=== PATIENT | female | born 1950 | race Asian ===

== ENCOUNTER → 2016-05-14 | Outpatient (CLI) | payer MEDICARE, OTHER ==
[~2016-05-14] MED LIST: ALBU8.5H3 IH; BENZ-26 PO; CARV12 PO; CEPH500 PO; DOCU250C91 PO; ESOM40CA PO; FOLI1 PO; HYDR25 PO; IPRA0.2S54 NEB; NIFE10 PO; NIFE60TA71 PO; ONDA4 PO; PRED20 PO; SEVEC800 PO; SIMV20TA6 PO
[2016-05-14 13:56] LABS: BASOPHILS % (AUTO) 0.3 % (0.0-2.0); EOSINOPHILS % (AUTO) 4.8 % (1.0-6.0); HEMATOCRIT 32.9 % (36-46); HEMOGLOBIN 10.4 g/dL (12.0-16.0); LYMPHOCYTES # (AUTO) 1.3 K/uL (1.0-4.8); LYMPHOCYTES % (AUTO) 19.5 % (22.0-44.0); MEAN CORPUSCULAR HEMOGLOBIN 30.1 pg (26.0-34.0); MEAN CORPUSCULAR HGB CONC 31.8 G/dL (31.0-37.0); MEAN CORPUSCULAR VOLUME 95 fL (80-100); MONOCYTES # (AUTO) 0.7 K/uL (0.1-1.0); MONOCYTES % (AUTO) 10.5 % (2.0-9.0); NEUTROPHILS # (AUTO) 4.2 K/uL (1.8-7.7); NEUTROPHILS % (AUTO) 64.9 % (40.0-70.0); PLATELET COUNT (AUTO) 297 K/uL (150-450); RED BLOOD CELL COUNT(AUTO) 3.47 MIL/uL (4.00-5.20); RED CELL DISTRIBUTION WIDTH 18.8 % (11.5-14.5); WHITE BLOOD COUNT (AUTO) 6.5 K/uL (4.5-11.0)
[2016-05-14 14:15] LABS: RBC MORPHOLOGY COMMENT ABNORMAL RBC MORPH
[2016-05-14 14:22] LABS: ALBUMIN 3.4 g/dL (3.4-5.0); BILIRUBIN,TOTAL 0.4 mg/dL (0.1-1.0); CALCIUM, TOTAL 10.5 mg/dL (8.8-10.5); CREATININE 3.68 mg/dL (0.60-1.30); THYROID STIMULATING HORMONE 6.86 uIU/mL (0.36-3.74); TOTAL PROTEIN, SERUM 8.2 g/dL (6.4-8.2)
[2016-05-18 16:05] LABS: APPEARANCE,URINE CLOUDY (CLEAR); GLUCOSE, URINE (UA) 250 mg/dL (NEGATIVE); KETONES,URINE NEGATIVE (NEGATIVE); LEUKOCYTE ESTERASE ,URINE MODERATE (NEGATIVE); OCCULT BLOOD,URINE MODERATE (NEGATIVE); PH,URINE 7.5 (5.0-8.0); PROTEIN,URINE SEE CONFIRM (NEGATIVE)
[2016-05-18 16:12] LABS: ADD UA MICROSCOPIC YES
[2016-05-18 16:36] LABS: SQUAMOUS EPITHELIAL CELL,UR Many /LPF (None Seen)
[2016-05-18 16:37] LABS: RBC,URINE 26-50 /HPF (0-2)
== END | disposition home or self-care (01) ==
LOC: MSR 12:52
PROVIDERS: ATTEND Internal Medicine
DX: Z00.00 Encounter for general adult medical examination without abnormal findings (principal); R50.9 Fever, unspecified; N18.6 End stage renal disease; E03.9 Hypothyroidism, unspecified
CPT/HCPCS: 70220; 84443; 87040; 87086

== ENCOUNTER → 2016-05-28 | Outpatient (CLI) | payer MEDICARE, OTHER ==
[~2016-05-28] MED LIST changes: -CARV12 PO; -IPRA0.2S54 NEB; +IPRA0.2S54 PUFF; -NIFE10 PO; -NIFE60TA71 PO; -SEVEC800 PO
[2016-05-28 13:09] LABS: THYROID STIMULATING HORMONE 3.12 uIU/mL (0.36-3.74)
== END | disposition home or self-care (01) ==
LOC: LABPV 12:23
PROVIDERS: ATTEND Internal Medicine
DX: E03.9 Hypothyroidism, unspecified (principal)
CPT/HCPCS: 84439; 84443; 84480

== ENCOUNTER → 2016-07-21 | Outpatient (CLI) | payer MEDICARE, OTHER ==
[~2016-07-21] MED LIST changes: +ACET650S27 PR; +BUDE0.5A3 NEB; +CARV12 PEG; +D50SYG IV; +EPOE10003 SQ; -HYDR25 PO; +HYDR25TA84 PO; +HYPR15DR23 OU; +IPRA0.2S54 NEB; -IPRA0.2S54 PUFF; +LEVO25TA9 PEG; +NIFE10 PO; +NIFE60TA71 PO; +PANT40I IV; +SEVEC800 PEG; +ZOSY225FZ IV; +[UNRECOGNIZED DRUG - CODE] IV; +[UNRECOGNIZED DRUG - CODE] IV
[2016-07-21 15:43] LABS: ABG BASE EXCESS 3.5 mmol/L (-2.0-3.0); ABG HCO3 27.6 mmol/L (22.0-26.0); ABG OXYHEMOGLOBIN 94.4 % (94.0-100.0); ABG PCO2 37 mmHg (35-45); ABG PH 7.481 (7.35-7.450); TEMPERATURE, FAHRENHEIT, BG 98.6 FAHREN (96.0-98.6)
[2016-07-21 15:44] LABS: ALLEN TEST, BLOOD GAS Positive
== END | disposition home or self-care (01) ==
LOC: RESP 15:19
PROVIDERS: ATTEND Internal Medicine Pulmonary Disease
DX: J44.9 Chronic obstructive pulmonary disease, unspecified (principal)
CPT/HCPCS: 82805

== ENCOUNTER 2016-08-14 10:19 | Inpatient (IN) | payer MEDICARE, OTHER ==
[~2016-08-14] VITALS: Ht 152.4 cm; Wt 44.0 kg
[~2016-08-14 10:19] MED LIST changes: -ACET650S27 PR; -BUDE0.5A3 NEB; -CARV12 PEG; -D50SYG IV; -EPOE10003 SQ; -HYPR15DR23 OU; -LEVO25TA9 PEG; -NIFE10 PO; -NIFE60TA71 PO; -PANT40I IV; -SEVEC800 PEG; -ZOSY225FZ IV; -[UNRECOGNIZED DRUG - CODE] IV; -[UNRECOGNIZED DRUG - CODE] IV
[2016-08-14] MEDS ORDERED: SEVEC800 PEG (10:35)
[2016-08-14] MEDS ORDERED: HYDR25TA84 PO (10:35)
[2016-08-14] MEDS ORDERED: NIFE10 PO (10:35)
[2016-08-14] MEDS ORDERED: CARV12 PEG (10:35)
[2016-08-14 10:42] LABS: BASOPHILS % (AUTO) 0.3 % (0.0-2.0); EOSINOPHILS % (AUTO) 2.5 % (1.0-6.0); HEMATOCRIT 30.5 % (36-46); HEMOGLOBIN 9.9 g/dL (12.0-16.0); LYMPHOCYTES # (AUTO) 4.1 K/uL (1.0-4.8); LYMPHOCYTES % (AUTO) 25.4 % (22.0-44.0); MEAN CORPUSCULAR HEMOGLOBIN 30.9 pg (26.0-34.0); MEAN CORPUSCULAR HGB CONC 32.4 G/dL (31.0-37.0); MEAN CORPUSCULAR VOLUME 95 fL (80-100); MONOCYTES # (AUTO) 0.1 K/uL (0.1-1.0); MONOCYTES % (AUTO) 0.8 % (2.0-9.0); NEUTROPHILS # (AUTO) 11.4 K/uL (1.8-7.7); PLATELET COUNT (AUTO) 208 K/uL (150-450); RED CELL DISTRIBUTION WIDTH 16.8 % (11.5-14.5); WHITE BLOOD COUNT (AUTO) 16.1 K/uL (4.5-11.0)
[2016-08-14] MEDS ORDERED: POVIDONE-IODINE 10% 120 ML SOLUTION TP ONE (10:43)
[2016-08-14 10:54] LABS: ANION GAP 18 mmol/L (8-16); CALCIUM, TOTAL 8.9 mg/dL (8.8-10.5); CARBON DIOXIDE 19 mmol/L (22-29); CHLORIDE 94 mmol/L (98-107); CREATININE 5.68 mg/dL (0.60-1.30); GLOMERULAR FILTR. RATE CALC 7 mL/min (>60); POTASSIUM 4.3 mmol/L (3.5-5.1); SODIUM SERUM 131 mmol/L (136-145); UREA NITROGEN, BLOOD 51 mg/dL (7-18)
[2016-08-14 10:56] LABS: INR 1.1 (0.9-1.1); PROTHROMBIN TIME 12.1 SEC (9.4-11.6)
[2016-08-14 11:19] LABS: ALANINE AMINOTRANSFERASE 115 U/L (12-78); ASPARTATE AMINOTRANSFERASE 116 U/L (15-37); BILIRUBIN,TOTAL 0.4 mg/dL (0.1-1.0); CREATINE KINASE MB 1.4 ng/mL (0-5); CREATINE KINASE, TOTAL 141 U/L (26-192)
[2016-08-14] MEDS ORDERED: NIFE60TA71 PO (11:29)
[2016-08-14] MEDS ORDERED: PROPOFOL 1000 MG/ISO-OSM 100 ML IV PRN ×2 (11:30→23:30)
[2016-08-14 11:39] LABS: ABG A-A DIFF O2 178.8 mmHg (10-20.0); ABG HCO3 16.1 mmol/L (22.0-26.0); ABG OXYHEMOGLOBIN 99.2 % (94.0-100.0); ABG PCO2 42 mmHg (35-45); ABG PH 7.218 (7.35-7.450); TEMPERATURE, FAHRENHEIT, BG 95.6 FAHREN (96.0-98.6)
[2016-08-14 11:40] LABS: ALLEN TEST, BLOOD GAS Positive
[2016-08-14] MEDS ORDERED: ROCURONIUM BROMIDE 10 MG/ML 5 ML VIAL IVP ONE (12:30)
[2016-08-14] MEDS ORDERED: LevETIRAcetam 500 MG in DEXTROSE 5%-WATER 100 ML IV ONE (15:45)
[2016-08-14] MEDS ORDERED: SODIUM CHLORIDE 0.9% 100 ML ONE (16:04)
[2016-08-14] MEDS ORDERED: IOVERSOL 320 MG/ML 100 ML VIAL ONE (16:04)
[2016-08-14] MEDS ORDERED: EPINEPHrine 1:10,000 [1 MG/10 ML] SYRINGE IVP ONE (17:55)
[2016-08-14] MEDS ORDERED: ATROPINE SULFATE 0.1 MG/ML 10 ML SYRINGE IVP ONE (17:55)
[2016-08-14] MEDS ORDERED: VANCOMYCIN HCL 1 GM/D5% WATER 200 ML IV PRN (19:45)
[2016-08-14] MEDS: PIPERACILLIN SODIUM/TAZOBACTAM 2.25 GM in DEXTROSE 5%-WATER 50 ML IV SCH (20:54)
[2016-08-14] MEDS ORDERED: VANCOMYCIN HCL 1 GM/D5% WATER 200 ML IV ONE (21:00)
[2016-08-14] MEDS: BUDESONIDE 0.5 MG/2 ML NEB SOLUTION NEB SCH (21:00)
[2016-08-14 22:00] VITALS: BP 171/147
[2016-08-14] MEDS: PROPOFOL 1000 MG/ISO-OSM 100 ML IV PRN (23:35)
[2016-08-14 23:52] LABS: ABG A-A DIFF O2 86.6 mmHg (10-20.0); ABG BASE EXCESS -4.4 mmol/L (-2.0-3.0); ABG HCO3 21.3 mmol/L (22.0-26.0); ABG OXYHEMOGLOBIN 98.7 % (94.0-100.0); ABG PCO2 34 mmHg (35-45); ABG PH 7.394 (7.35-7.450); TEMPERATURE, FAHRENHEIT, BG 98.4 FAHREN (96.0-98.6)
[2016-08-14 23:53] LABS: ALLEN TEST, BLOOD GAS Positive
[2016-08-15] VITALS (10 sets, daily range): BP systolic 91–163; BP diastolic 57–83
[2016-08-15 01:24] LABS: CALCIUM, TOTAL 8.3 mg/dL (8.8-10.5); CREATININE 6.12 mg/dL (0.60-1.30); POTASSIUM 4.9 mmol/L (3.5-5.1)
[2016-08-15 01:30] LABS: ALBUMIN 3.2 g/dL (3.4-5.0); BILIRUBIN,TOTAL 0.5 mg/dL (0.1-1.0); MAGNESIUM 2.3 mg/dL (1.80-2.40); TOTAL PROTEIN, SERUM 6.6 g/dL (6.4-8.2)
[2016-08-15 01:43] LABS: PHOSPHORUS 9.9 mg/dL (2.5-4.9)
[2016-08-15] MEDS: LevETIRAcetam 500 MG in DEXTROSE 5%-WATER 100 ML IV SCH ×2 (03:50→17:05)
[2016-08-15] MEDS: PIPERACILLIN SODIUM/TAZOBACTAM 2.25 GM in DEXTROSE 5%-WATER 50 ML IV SCH ×3 (05:22→20:39)
[2016-08-15 05:59] LABS: ALBUMIN 3.1 g/dL (3.4-5.0); BILIRUBIN,TOTAL 0.5 mg/dL (0.1-1.0); CALCIUM, TOTAL 8.1 mg/dL (8.8-10.5); CREATININE 6.21 mg/dL (0.60-1.30); MAGNESIUM 2.4 mg/dL (1.80-2.40); POTASSIUM 4.9 mmol/L (3.5-5.1); THYROID STIMULATING HORMONE 7.41 uIU/mL (0.36-3.74); TOTAL PROTEIN, SERUM 6.6 g/dL (6.4-8.2)
[2016-08-15 06:36] LABS: PHOSPHORUS 10.4 mg/dL (2.5-4.9)
[2016-08-15] MEDS ORDERED: SODIUM CHLORIDE 0.9% 250 ML IV ONE ×2 (06:39→21:50)
[2016-08-15 07:03] LABS: BASOPHILS % (AUTO) 0.1 % (0.0-2.0); EOSINOPHILS % (AUTO) 0 % (1.0-6.0); HEMATOCRIT 22.8 % (36-46); MEAN CORPUSCULAR HEMOGLOBIN 31.2 pg (26.0-34.0); MEAN CORPUSCULAR HGB CONC 33.2 G/dL (31.0-37.0); MEAN CORPUSCULAR VOLUME 94 fL (80-100); MONOCYTES # (AUTO) 0.5 K/uL (0.1-1.0); MONOCYTES % (AUTO) 2.6 % (2.0-9.0); NEUTROPHILS # (AUTO) 19.1 K/uL (1.8-7.7); PLATELET COUNT (AUTO) 179 K/uL (150-450); RED BLOOD CELL COUNT(AUTO) 2.43 MIL/uL (4.00-5.20); RED CELL DISTRIBUTION WIDTH 16.3 % (11.5-14.5); WHITE BLOOD COUNT (AUTO) 20.7 K/uL (4.5-11.0)
[2016-08-15 07:16] LABS: NEUTROPHILS % (AUTO) 92.3 % (40.0-70.0)
[2016-08-15 07:17] LABS: HEMOGLOBIN 7.6 g/dL (12.0-16.0)
[2016-08-15] MEDS: BUDESONIDE 0.5 MG/2 ML NEB SOLUTION NEB SCH ×2 (07:40→21:01)
[2016-08-15] MEDS ORDERED: EPOETIN ALFA 10,000 UNITS/ML VIAL SQ ONE (08:45)
[2016-08-15 09:55] LABS: ABG A-A DIFF O2 43.2 mmHg (10-20.0); ABG BASE EXCESS -5.3 mmol/L (-2.0-3.0); ABG HCO3 20.4 mmol/L (22.0-26.0); ABG OXYHEMOGLOBIN 97.1 % (94.0-100.0); ABG PCO2 35 mmHg (35-45); ABG PH 7.374 (7.35-7.450); ALLEN TEST, BLOOD GAS Positive; TEMPERATURE, FAHRENHEIT, BG 98.5 FAHREN (96.0-98.6)
[2016-08-15] MEDS: LEVOTHYROXINE SODIUM 100 MCG VIAL IVP SCH (10:10)
[2016-08-15] MEDS ORDERED: MANNITOL 25%-12.5 GM/50 ML VIAL IVP PRN (10:45)
[2016-08-15 11:27] LABS: ALBUMIN 3.1 g/dL (3.4-5.0); BILIRUBIN,TOTAL 0.5 mg/dL (0.1-1.0); CALCIUM, TOTAL 8.2 mg/dL (8.8-10.5); CREATININE 6.48 mg/dL (0.60-1.30); MAGNESIUM 2.3 mg/dL (1.80-2.40); POTASSIUM 5.2 mmol/L (3.5-5.1); TOTAL PROTEIN, SERUM 6.7 g/dL (6.4-8.2)
[2016-08-15] MEDS: PROPOFOL 1000 MG/ISO-OSM 100 ML IV PRN ×2 (11:54→19:31)
[2016-08-15 12:04] LABS: PHOSPHORUS 9.5 mg/dL (2.5-4.9)
[2016-08-15] MEDS ORDERED: SODIUM CHLORIDE 0.9% 1,000 ML IV ONE (12:45)
[2016-08-15 17:48] LABS: ABG A-A DIFF O2 47.9 mmHg (10-20.0); ABG BASE EXCESS 2.9 mmol/L (-2.0-3.0); ABG HCO3 27.2 mmol/L (22.0-26.0); ABG OXYHEMOGLOBIN 97.5 % (94.0-100.0); ABG PCO2 32 mmHg (35-45); ABG PH 7.519 (7.35-7.450); ALLEN TEST, BLOOD GAS Positive; TEMPERATURE, FAHRENHEIT, BG 97.2 FAHREN (96.0-98.6)
[2016-08-16] VITALS: BP 111/63
[2016-08-16] MEDS: PROPOFOL 1000 MG/ISO-OSM 100 ML IV PRN ×2 (03:20→10:45)
[2016-08-16] MEDS: LevETIRAcetam 500 MG in DEXTROSE 5%-WATER 100 ML IV SCH ×2 (03:20→17:57)
[2016-08-16 04:00] VITALS: BP 133/69
[2016-08-16] MEDS: PIPERACILLIN SODIUM/TAZOBACTAM 2.25 GM in DEXTROSE 5%-WATER 50 ML IV SCH ×3 (04:49→20:03)
[2016-08-16 05:42] LABS: EOSINOPHILS % (AUTO) 0.1 % (1.0-6.0); HEMOGLOBIN 8.8 g/dL (12.0-16.0); LYMPHOCYTES # (AUTO) 0.8 K/uL (1.0-4.8); LYMPHOCYTES % (AUTO) 5.2 % (22.0-44.0); MEAN CORPUSCULAR HEMOGLOBIN 29.4 pg (26.0-34.0); MEAN CORPUSCULAR HGB CONC 33.6 G/dL (31.0-37.0); MEAN CORPUSCULAR VOLUME 87 fL (80-100); MONOCYTES # (AUTO) 0.5 K/uL (0.1-1.0); MONOCYTES % (AUTO) 3.3 % (2.0-9.0); NEUTROPHILS # (AUTO) 13.9 K/uL (1.8-7.7); PLATELET COUNT (AUTO) 154 K/uL (150-450); RED BLOOD CELL COUNT(AUTO) 2.98 MIL/uL (4.00-5.20); RED CELL DISTRIBUTION WIDTH 22.8 % (11.5-14.5); WHITE BLOOD COUNT (AUTO) 15.2 K/uL (4.5-11.0)
[2016-08-16 05:51] LABS: NEUTROPHILS % (AUTO) 91.4 % (40.0-70.0)
[2016-08-16 06:02] LABS: ALBUMIN 3.1 g/dL (3.4-5.0); BILIRUBIN,TOTAL 0.5 mg/dL (0.1-1.0); CALCIUM, TOTAL 8.8 mg/dL (8.8-10.5); CREATININE 3.01 mg/dL (0.60-1.30); MAGNESIUM 1.8 mg/dL (1.80-2.40); POTASSIUM 3.9 mmol/L (3.5-5.1)
[2016-08-16 08:00] VITALS: BP 110/66
[2016-08-16 08:27] LABS: GLUCOSE,POINT OF CARE 125 MG/DL (70-110)
[2016-08-16] MEDS: SEVELAMER CARBONATE 800 MG POWDER PACKET NG SCH ×3 (09:31→17:57)
[2016-08-16] MEDS: LEVOTHYROXINE SODIUM 100 MCG VIAL IVP SCH (09:33)
[2016-08-16] MEDS: BUDESONIDE 0.5 MG/2 ML NEB SOLUTION NEB SCH ×2 (09:47→20:47)
[2016-08-16] MEDS: ACETAMINOPHEN 650 MG RECTAL SUPPOSITORY PR PRN ×2 (10:45→17:58)
[2016-08-16 12:00] VITALS: BP 181/90
[2016-08-16] MEDS ORDERED: VANCOMYCIN HCL 750 MG in DEXTROSE 5%-WATER 150 ML IV ONE (12:15)
[2016-08-16 16:00] VITALS: BP 168/96
[2016-08-16] MEDS ORDERED: SODIUM CHLORIDE 0.9% 250 ML IV ONE ×2 (18:08→23:18)
[2016-08-16] MEDS ORDERED: LORazepam 2 MG/ML VIAL IVP ONE (19:45)
[2016-08-16 20:00] VITALS: BP 192/97
[2016-08-16] MEDS: HydrALAZINE HCL 25 MG TABLET PO SCH (20:03)
[2016-08-16] MEDS: CARVEDILOL 12.5 MG TABLET PO SCH (20:03)
[2016-08-16] MEDS: LevETIRAcetam 1,000 MG in DEXTROSE 5%-WATER 100 ML IV SCH (20:04)
[2016-08-17] VITALS (15 sets, daily range): BP systolic 115–183; BP diastolic 56–93
[2016-08-17] MEDS: ACETAMINOPHEN 650 MG RECTAL SUPPOSITORY PR PRN (00:47)
[2016-08-17] MEDS: PIPERACILLIN SODIUM/TAZOBACTAM 2.25 GM in DEXTROSE 5%-WATER 50 ML IV SCH ×3 (04:43→20:27)
[2016-08-17 05:34] LABS: EOSINOPHILS # (AUTO) 0.02 K/uL (0.00-0.70); HEMATOCRIT 21.9 % (36-46); HEMOGLOBIN 7.3 g/dL (12.0-16.0); LYMPHOCYTES # (AUTO) 1.6 K/uL (1.0-4.8); LYMPHOCYTES % (AUTO) 9.5 % (22.0-44.0); MEAN CORPUSCULAR HEMOGLOBIN 29.4 pg (26.0-34.0); MEAN CORPUSCULAR HGB CONC 33.4 G/dL (31.0-37.0); MEAN CORPUSCULAR VOLUME 88 fL (80-100); MONOCYTES # (AUTO) 0.9 K/uL (0.1-1.0); MONOCYTES % (AUTO) 5.4 % (2.0-9.0); NEUTROPHILS # (AUTO) 14.3 K/uL (1.8-7.7); PLATELET COUNT (AUTO) 161 K/uL (150-450); RED BLOOD CELL COUNT(AUTO) 2.48 MIL/uL (4.00-5.20); RED CELL DISTRIBUTION WIDTH 22.4 % (11.5-14.5); WHITE BLOOD COUNT (AUTO) 16.8 K/uL (4.5-11.0)
[2016-08-17 06:26] LABS: BILIRUBIN,TOTAL 0.6 mg/dL (0.1-1.0); CALCIUM, TOTAL 8.7 mg/dL (8.8-10.5); CREATININE 4.54 mg/dL (0.60-1.30); MAGNESIUM 1.9 mg/dL (1.80-2.40); PHOSPHORUS 6.2 mg/dL (2.5-4.9); TOTAL PROTEIN, SERUM 6.7 g/dL (6.4-8.2)
[2016-08-17] MEDS: BUDESONIDE 0.5 MG/2 ML NEB SOLUTION NEB SCH ×2 (07:33→19:37)
[2016-08-17] MEDS: SEVELAMER CARBONATE 800 MG POWDER PACKET NG SCH ×3 (08:00→17:13)
[2016-08-17 10:12] LABS: RBC MORPHOLOGY COMMENT ABNORMAL RBC MORPH
[2016-08-17] MEDS ORDERED: SODIUM CHLORIDE 0.9% 2,000 ML IV ONE (10:14)
[2016-08-17] MEDS ORDERED: SODIUM CHLORIDE 0.9% 250 ML IV ONE (10:14)
[2016-08-17] MEDS ORDERED: MANNITOL 25%-12.5 GM/50 ML VIAL IVP PRN (11:00)
[2016-08-17] MEDS: LevETIRAcetam 1,000 MG in DEXTROSE 5%-WATER 100 ML IV SCH ×2 (13:00→20:27)
[2016-08-17] MEDS: LEVOTHYROXINE SODIUM 100 MCG VIAL IVP SCH (13:58)
[2016-08-17] MEDS: EPOETIN ALFA 10,000 UNITS/ML VIAL SQ SCH (13:59)
[2016-08-17] MEDS: HydrALAZINE HCL 25 MG TABLET PO SCH ×3 (13:59→20:27)
[2016-08-17] MEDS: CARVEDILOL 12.5 MG TABLET PO SCH ×2 (13:59→20:27)
[2016-08-17] MEDS: PANTOPRAZOLE SODIUM 40 MG/VIAL IVP SCH (13:59)
[2016-08-17] MEDS: -HEMODIALYSIS NOTE- MISC SCH (15:00)
[2016-08-17] MEDS: PIPERACILLIN SODIUM/TAZOBACTAM 0.75 GM in DEXTROSE 5%-WATER 50 ML IV PRN (15:00)
[2016-08-17] MEDS ORDERED: DEXTROSE 50%-WATER 25 GM/50 ML SYRINGE IVP PRN (19:30)
[2016-08-18] VITALS: BP 155/78
[2016-08-18 04:00] VITALS: BP 144/64
[2016-08-18 04:56] LABS: GLUCOSE,POINT OF CARE 143 MG/DL (70-110)
[2016-08-18] MEDS: PIPERACILLIN SODIUM/TAZOBACTAM 2.25 GM in DEXTROSE 5%-WATER 50 ML IV SCH ×3 (05:00→20:19)
[2016-08-18 05:33] LABS: EOSINOPHILS % (AUTO) 0.5 % (1.0-6.0); HEMATOCRIT 29.4 % (36-46); LYMPHOCYTES # (AUTO) 0.9 K/uL (1.0-4.8); LYMPHOCYTES % (AUTO) 6.4 % (22.0-44.0); MEAN CORPUSCULAR HEMOGLOBIN 28.7 pg (26.0-34.0); MEAN CORPUSCULAR VOLUME 84 fL (80-100); MONOCYTES # (AUTO) 0.8 K/uL (0.1-1.0); MONOCYTES % (AUTO) 6.1 % (2.0-9.0); NEUTROPHILS # (AUTO) 11.6 K/uL (1.8-7.7); PLATELET COUNT (AUTO) 152 K/uL (150-450); RED BLOOD CELL COUNT(AUTO) 3.48 MIL/uL (4.00-5.20); RED CELL DISTRIBUTION WIDTH 19.7 % (11.5-14.5); WHITE BLOOD COUNT (AUTO) 13.4 K/uL (4.5-11.0)
[2016-08-18 05:37] LABS: ALBUMIN 2.8 g/dL (3.4-5.0); BILIRUBIN,TOTAL 0.7 mg/dL (0.1-1.0); CALCIUM, TOTAL 8.9 mg/dL (8.8-10.5); CREATININE 2.58 mg/dL (0.60-1.30); MAGNESIUM 1.7 mg/dL (1.80-2.40); POTASSIUM 3.3 mmol/L (3.5-5.1); TOTAL PROTEIN, SERUM 6.4 g/dL (6.4-8.2)
[2016-08-18] MEDS: BUDESONIDE 0.5 MG/2 ML NEB SOLUTION NEB SCH ×2 (07:57→19:00)
[2016-08-18 08:00] VITALS: BP 172/73
[2016-08-18] MEDS ORDERED: MAGNESIUM SULFATE 0.5 GM in DEXTROSE 5%-WATER 50 ML IV ONE (08:00)
[2016-08-18] MEDS: SEVELAMER CARBONATE 800 MG POWDER PACKET NG SCH ×3 (08:24→17:09)
[2016-08-18] MEDS: LEVOTHYROXINE SODIUM 100 MCG VIAL IVP SCH (08:25)
[2016-08-18] MEDS: LevETIRAcetam 1,000 MG in DEXTROSE 5%-WATER 100 ML IV SCH ×2 (08:27→22:27)
[2016-08-18] MEDS: PANTOPRAZOLE SODIUM 40 MG/VIAL IVP SCH (08:27)
[2016-08-18] MEDS: HydrALAZINE HCL 25 MG TABLET PO SCH ×3 (08:29→20:19)
[2016-08-18] MEDS: CARVEDILOL 12.5 MG TABLET PO SCH ×2 (08:29→20:19)
[2016-08-18] MEDS ORDERED: SODIUM CHLORIDE 0.9% 500 ML IV ONE (09:10)
[2016-08-18 10:44] LABS: RBC MORPHOLOGY COMMENT ABNORMAL RBC MORPH
[2016-08-18] MEDS: INSULIN ASPART 100 UNITS/ML SQ PRN ×2 (11:33→17:10)
[2016-08-18 11:37] LABS: GLUCOSE,POINT OF CARE 137 MG/DL (70-110)
[2016-08-18 11:37] LABS: GLUCOSE COMMENT 1 Received Meds; GLUCOSE,POINT OF CARE 165 MG/DL (70-110)
[2016-08-18 12:00] VITALS: BP 163/75
[2016-08-18] MEDS: ACETAMINOPHEN 650 MG RECTAL SUPPOSITORY PR PRN ×2 (14:08→22:28)
[2016-08-18 16:32] VITALS: BP 149/59
[2016-08-18 20:00] VITALS: BP 169/76
[2016-08-18 22:02] LABS: GLUCOSE COMMENT 1 Received Meds; GLUCOSE,POINT OF CARE 178 MG/DL (70-110)
[2016-08-19] VITALS: BP 166/73
[2016-08-19] MEDS: INSULIN ASPART 100 UNITS/ML SQ PRN ×4 (00:20→17:55)
[2016-08-19] MEDS: HYPROMELLOSE 0.5% 15 ML OPHTHALMIC SOLUTION OU SCH ×3 (00:28→22:23)
[2016-08-19 04:00] VITALS: BP 164/73
[2016-08-19] MEDS: PIPERACILLIN SODIUM/TAZOBACTAM 2.25 GM in DEXTROSE 5%-WATER 50 ML IV SCH ×3 (04:40→22:24)
[2016-08-19 05:05] LABS: BASOPHILS % (AUTO) 0.3 % (0.0-2.0); EOSINOPHILS % (AUTO) 1.2 % (1.0-6.0); HEMATOCRIT 29.5 % (36-46); HEMOGLOBIN 9.9 g/dL (12.0-16.0); LYMPHOCYTES # (AUTO) 0.9 K/uL (1.0-4.8); LYMPHOCYTES % (AUTO) 6.1 % (22.0-44.0); MEAN CORPUSCULAR HEMOGLOBIN 28.8 pg (26.0-34.0); MEAN CORPUSCULAR HGB CONC 33.7 G/dL (31.0-37.0); MEAN CORPUSCULAR VOLUME 86 fL (80-100); MONOCYTES # (AUTO) 0.9 K/uL (0.1-1.0); MONOCYTES % (AUTO) 6.1 % (2.0-9.0); NEUTROPHILS # (AUTO) 12.4 K/uL (1.8-7.7); PLATELET COUNT (AUTO) 167 K/uL (150-450); RED BLOOD CELL COUNT(AUTO) 3.44 MIL/uL (4.00-5.20); RED CELL DISTRIBUTION WIDTH 20.3 % (11.5-14.5); WHITE BLOOD COUNT (AUTO) 14.3 K/uL (4.5-11.0)
[2016-08-19 05:27] LABS: ALBUMIN 2.9 g/dL (3.4-5.0); BILIRUBIN,TOTAL 0.7 mg/dL (0.1-1.0); CALCIUM, TOTAL 9.2 mg/dL (8.8-10.5); CREATININE 4.24 mg/dL (0.60-1.30); MAGNESIUM 2.3 mg/dL (1.80-2.40); POTASSIUM 3.6 mmol/L (3.5-5.1); TOTAL PROTEIN, SERUM 6.9 g/dL (6.4-8.2)
[2016-08-19 05:38] LABS: NEUTROPHILS % (AUTO) 86.3 % (40.0-70.0)
[2016-08-19] MEDS: BUDESONIDE 0.5 MG/2 ML NEB SOLUTION NEB SCH ×2 (07:57→19:37)
[2016-08-19 08:00] VITALS: BP 142/64
[2016-08-19] MEDS ORDERED: VANCOMYCIN HCL 750 MG in DEXTROSE 5%-WATER 150 ML IV ONE (09:00)
[2016-08-19 09:26] LABS: GLUCOSE,POINT OF CARE 175 MG/DL (70-110)
[2016-08-19 09:26] LABS: GLUCOSE,POINT OF CARE 169 MG/DL (70-110)
[2016-08-19] MEDS ORDERED: SODIUM CHLORIDE 0.9% 1,000 ML IV ONE (09:34)
[2016-08-19] MEDS: SEVELAMER CARBONATE 800 MG POWDER PACKET NG SCH ×3 (09:45→17:55)
[2016-08-19] MEDS: ACETAMINOPHEN 650 MG RECTAL SUPPOSITORY PR PRN ×2 (09:45→17:52)
[2016-08-19] MEDS: PANTOPRAZOLE SODIUM 40 MG/VIAL IVP SCH (09:45)
[2016-08-19] MEDS: EPOETIN ALFA 10,000 UNITS/ML VIAL SQ SCH (09:45)
[2016-08-19] MEDS: LEVOTHYROXINE SODIUM 100 MCG VIAL IVP SCH (09:46)
[2016-08-19] MEDS ORDERED: MANNITOL 25%-12.5 GM/50 ML VIAL IVP PRN (10:00)
[2016-08-19] MEDS ORDERED: LIDOCAINE HCL/PF 1% 2 ML VIAL ID PRN (10:00)
[2016-08-19] MEDS ORDERED: ALBUMIN HUMAN 25%-12.5GM/50ML IV BOTTLE IV PRN (10:00)
[2016-08-19 10:09] LABS: RBC MORPHOLOGY COMMENT ABNORMAL RBC MORPH
[2016-08-19 12:00] VITALS: BP 129/74
[2016-08-19] MEDS: CARVEDILOL 12.5 MG TABLET PO SCH ×3 (12:55→21:07)
[2016-08-19] MEDS: HydrALAZINE HCL 25 MG TABLET PO SCH ×4 (12:55→21:07)
[2016-08-19] MEDS: LevETIRAcetam 1,000 MG in DEXTROSE 5%-WATER 100 ML IV SCH ×2 (12:55→21:08)
[2016-08-19] MEDS ORDERED: PHENYLEPHRINE 200 MG/D5%-WATER 250 ML IV ONE (13:58)
[2016-08-19 16:00] VITALS: BP 116/64
[2016-08-19] MEDS ORDERED: PHENYLEPHRINE 200 MG/D5%-WATER 250 ML IV PRN (17:30)
[2016-08-19] MEDS ORDERED: 0.9% SODIUM CHLORIDE 5 ML NEB SOLUTION NEB ONE (19:23)
[2016-08-19 20:00] VITALS: BP 123/66
[2016-08-19] MEDS: PIPERACILLIN SODIUM/TAZOBACTAM 0.75 GM in DEXTROSE 5%-WATER 50 ML IV PRN (21:07)
[2016-08-20] VITALS: BP 119/68
[2016-08-20] MEDS: INSULIN ASPART 100 UNITS/ML SQ PRN ×4 (00:59→18:45)
[2016-08-20 04:00] VITALS: BP 136/76
[2016-08-20] MEDS: ACETAMINOPHEN 650 MG RECTAL SUPPOSITORY PR PRN ×3 (04:46→21:05)
[2016-08-20] MEDS: PIPERACILLIN SODIUM/TAZOBACTAM 2.25 GM in DEXTROSE 5%-WATER 50 ML IV SCH ×3 (04:46→21:05)
[2016-08-20] MEDS ORDERED: SODIUM CHLORIDE 0.9% 500 ML IV ONE ×2 (05:44→20:49)
[2016-08-20 07:17] LABS: BASOPHILS % (AUTO) 0.2 % (0.0-2.0); EOSINOPHILS % (AUTO) 6.9 % (1.0-6.0); HEMATOCRIT 27.3 % (36-46); HEMOGLOBIN 9.2 g/dL (12.0-16.0); LYMPHOCYTES # (AUTO) 1.2 K/uL (1.0-4.8); LYMPHOCYTES % (AUTO) 7.5 % (22.0-44.0); MEAN CORPUSCULAR HGB CONC 33.6 G/dL (31.0-37.0); MEAN CORPUSCULAR VOLUME 86 fL (80-100); MONOCYTES # (AUTO) 0.8 K/uL (0.1-1.0); MONOCYTES % (AUTO) 4.9 % (2.0-9.0); NEUTROPHILS # (AUTO) 12.7 K/uL (1.8-7.7); NEUTROPHILS % (AUTO) 80.5 % (40.0-70.0); PLATELET COUNT (AUTO) 200 K/uL (150-450); RED BLOOD CELL COUNT(AUTO) 3.16 MIL/uL (4.00-5.20); RED CELL DISTRIBUTION WIDTH 19.6 % (11.5-14.5); WHITE BLOOD COUNT (AUTO) 15.8 K/uL (4.5-11.0)
[2016-08-20 07:32] LABS: CALCIUM, TOTAL 9.1 mg/dL (8.8-10.5); CREATININE 4.35 mg/dL (0.60-1.30); MAGNESIUM 2.3 mg/dL (1.80-2.40); PHOSPHORUS 3.8 mg/dL (2.5-4.9); POTASSIUM 3.7 mmol/L (3.5-5.1)
[2016-08-20 07:49] LABS: RBC MORPHOLOGY COMMENT ABNORMAL RBC MORPH
[2016-08-20 08:00] VITALS: BP 127/67
[2016-08-20 08:02] LABS: GLUCOSE COMMENT 1 Received Meds; GLUCOSE,POINT OF CARE 225 MG/DL (70-110)
[2016-08-20 08:02] LABS: GLUCOSE,POINT OF CARE 174 MG/DL (70-110)
[2016-08-20 08:02] LABS: GLUCOSE COMMENT 1 Received Meds; GLUCOSE,POINT OF CARE 180 MG/DL (70-110)
[2016-08-20 08:02] LABS: GLUCOSE COMMENT 1 Received Meds; GLUCOSE,POINT OF CARE 186 MG/DL (70-110)
[2016-08-20] MEDS: BUDESONIDE 0.5 MG/2 ML NEB SOLUTION NEB SCH ×2 (08:04→20:58)
[2016-08-20] MEDS: LEVOTHYROXINE SODIUM 100 MCG VIAL IVP SCH (09:16)
[2016-08-20] MEDS: HydrALAZINE HCL 25 MG TABLET PO SCH ×2 (09:16→21:39)
[2016-08-20] MEDS: PANTOPRAZOLE SODIUM 40 MG/VIAL IVP SCH (09:16)
[2016-08-20] MEDS: HYPROMELLOSE 0.5% 15 ML OPHTHALMIC SOLUTION OU SCH ×2 (09:16→21:38)
[2016-08-20] MEDS: CARVEDILOL 12.5 MG TABLET PO SCH ×2 (09:16→21:38)
[2016-08-20] MEDS: SEVELAMER CARBONATE 800 MG POWDER PACKET NG SCH ×3 (09:17→18:44)
[2016-08-20] MEDS: LevETIRAcetam 1,000 MG in DEXTROSE 5%-WATER 100 ML IV SCH ×2 (09:17→21:39)
[2016-08-20 12:00] VITALS: BP 137/71
[2016-08-20 16:00] VITALS: BP 113/62
[2016-08-20 17:12] LABS: ABG A-A DIFF O2 56.2 mmHg (10-20.0); ABG BASE EXCESS 7.7 mmol/L (-2.0-3.0); ABG HCO3 31.2 mmol/L (22.0-26.0); ABG OXYHEMOGLOBIN 98.4 % (94.0-100.0); ABG PCO2 34 mmHg (35-45); ABG PH 7.565 (7.35-7.450); ALLEN TEST, BLOOD GAS Positive; TEMPERATURE, FAHRENHEIT, BG 99.6 FAHREN (96.0-98.6)
[2016-08-20 20:00] VITALS: BP 144/72
[2016-08-21] VITALS (7 sets, daily range): BP systolic 105–187; BP diastolic 53–99
[2016-08-21 01:02] LABS: GLUCOSE COMMENT 1 Received Meds; GLUCOSE,POINT OF CARE 199 MG/DL (70-110)
[2016-08-21] MEDS: INSULIN ASPART 100 UNITS/ML SQ PRN ×4 (01:06→18:21)
[2016-08-21] MEDS: PIPERACILLIN SODIUM/TAZOBACTAM 2.25 GM in DEXTROSE 5%-WATER 50 ML IV SCH ×3 (05:04→21:23)
[2016-08-21] MEDS: HYPROMELLOSE 0.5% 15 ML OPHTHALMIC SOLUTION OU SCH ×2 (09:00→21:39)
[2016-08-21 09:02] LABS: GLUCOSE COMMENT 1 Received Meds; GLUCOSE,POINT OF CARE 176 MG/DL (70-110)
[2016-08-21 09:07] LABS: GLUCOSE COMMENT 1 Received Meds; GLUCOSE,POINT OF CARE 192 MG/DL (70-110)
[2016-08-21 09:07] LABS: GLUCOSE COMMENT 1 Received Meds; GLUCOSE,POINT OF CARE 181 MG/DL (70-110)
[2016-08-21] MEDS: SEVELAMER CARBONATE 800 MG POWDER PACKET NG SCH ×3 (09:11→18:11)
[2016-08-21] MEDS: PANTOPRAZOLE SODIUM 40 MG/VIAL IVP SCH (09:12)
[2016-08-21] MEDS: LEVOTHYROXINE SODIUM 100 MCG VIAL IVP SCH (09:12)
[2016-08-21] MEDS ORDERED: SODIUM CHLORIDE 0.9% 2,000 ML IV ONE (09:59)
[2016-08-21 10:46] LABS: ABG A-A DIFF O2 54.5 mmHg (10-20.0); ABG BASE EXCESS 4.7 mmol/L (-2.0-3.0); ABG HCO3 28.7 mmol/L (22.0-26.0); ABG OXYHEMOGLOBIN 98.6 % (94.0-100.0); ABG PCO2 34 mmHg (35-45); ABG PH 7.528 (7.35-7.450)
[2016-08-21 10:47] LABS: ALLEN TEST, BLOOD GAS Positive
[2016-08-21] MEDS: HydrALAZINE HCL 25 MG TABLET PO SCH ×2 (10:53→21:22)
[2016-08-21] MEDS: BUDESONIDE 0.5 MG/2 ML NEB SOLUTION NEB SCH ×2 (11:34→21:45)
[2016-08-21] MEDS: LevETIRAcetam 1,000 MG in DEXTROSE 5%-WATER 100 ML IV SCH ×2 (12:57→21:43)
[2016-08-21] MEDS: CARVEDILOL 12.5 MG TABLET PO SCH ×2 (13:06→21:22)
[2016-08-21] MEDS: EPOETIN ALFA 10,000 UNITS/ML VIAL SQ SCH (13:06)
[2016-08-21 15:57] LABS: BASOPHILS % (AUTO) 0.1 % (0.0-2.0); EOSINOPHILS % (AUTO) 7.2 % (1.0-6.0); HEMATOCRIT 26.4 % (36-46); HEMOGLOBIN 8.8 g/dL (12.0-16.0); LYMPHOCYTES # (AUTO) 0.7 K/uL (1.0-4.8); LYMPHOCYTES % (AUTO) 4.2 % (22.0-44.0); MEAN CORPUSCULAR HEMOGLOBIN 28.9 pg (26.0-34.0); MEAN CORPUSCULAR HGB CONC 33.4 G/dL (31.0-37.0); MEAN CORPUSCULAR VOLUME 86 fL (80-100); MONOCYTES # (AUTO) 0.6 K/uL (0.1-1.0); MONOCYTES % (AUTO) 3.3 % (2.0-9.0); NEUTROPHILS # (AUTO) 14.4 K/uL (1.8-7.7); PLATELET COUNT (AUTO) 236 K/uL (150-450); RED BLOOD CELL COUNT(AUTO) 3.05 MIL/uL (4.00-5.20); RED CELL DISTRIBUTION WIDTH 20.4 % (11.5-14.5); WHITE BLOOD COUNT (AUTO) 16.9 K/uL (4.5-11.0)
[2016-08-21 15:58] LABS: NEUTROPHILS % (AUTO) 85.2 % (40.0-70.0)
[2016-08-21 16:08] LABS: CREATININE 2.24 mg/dL (0.60-1.30); POTASSIUM 3.7 mmol/L (3.5-5.1)
[2016-08-21 16:23] LABS: RBC MORPHOLOGY COMMENT ABNORMAL RBC MORPH
[2016-08-21 19:02] LABS: GLUCOSE,POINT OF CARE 200 MG/DL (70-110)
[2016-08-21 19:02] LABS: GLUCOSE,POINT OF CARE 132 MG/DL (70-110)
[2016-08-21] MEDS ORDERED: SODIUM CHLORIDE 0.9% 500 ML IV ONE (21:18)
[2016-08-22] VITALS (7 sets, daily range): BP systolic 100–145; BP diastolic 53–78
[2016-08-22] MEDS: INSULIN ASPART 100 UNITS/ML SQ PRN ×4 (01:10→18:01)
[2016-08-22] MEDS: PIPERACILLIN SODIUM/TAZOBACTAM 2.25 GM in DEXTROSE 5%-WATER 50 ML IV SCH ×3 (05:40→22:09)
[2016-08-22] MEDS: LEVOTHYROXINE SODIUM 25 MCG TABLET NG SCH (06:36)
[2016-08-22] MEDS: BUDESONIDE 0.5 MG/2 ML NEB SOLUTION NEB SCH ×2 (07:37→19:11)
[2016-08-22] MEDS: SEVELAMER CARBONATE 800 MG POWDER PACKET NG SCH ×3 (08:00→17:06)
[2016-08-22 08:02] LABS: GLUCOSE,POINT OF CARE 208 MG/DL (70-110)
[2016-08-22] MEDS: HydrALAZINE HCL 25 MG TABLET PO SCH ×2 (09:00→22:10)
[2016-08-22] MEDS: HYPROMELLOSE 0.5% 15 ML OPHTHALMIC SOLUTION OU SCH ×2 (09:00→22:10)
[2016-08-22] MEDS ORDERED: VANCOMYCIN HCL 750 MG in DEXTROSE 5%-WATER 150 ML IV ONE (09:00)
[2016-08-22] MEDS: PANTOPRAZOLE SODIUM 40 MG/VIAL IVP SCH (09:00)
[2016-08-22] MEDS: CARVEDILOL 12.5 MG TABLET PO SCH ×2 (09:00→22:10)
[2016-08-22] MEDS: LevETIRAcetam 1,000 MG in DEXTROSE 5%-WATER 100 ML IV SCH ×2 (09:21→22:09)
[2016-08-22 10:55] LABS: ABG A-A DIFF O2 58.9 mmHg (10-20.0); ABG BASE EXCESS 1.9 mmol/L (-2.0-3.0); ABG HCO3 26.3 mmol/L (22.0-26.0); ABG OXYHEMOGLOBIN 98.2 % (94.0-100.0); ABG PCO2 30 mmHg (35-45); ABG PH 7.526 (7.35-7.450); TEMPERATURE, FAHRENHEIT, BG 99.2 FAHREN (96.0-98.6)
[2016-08-22 10:58] LABS: ALLEN TEST, BLOOD GAS Positive
[2016-08-22] MEDS ORDERED: SODIUM CHLORIDE 0.9% 250 ML IV ONE (22:02)
[2016-08-22 23:22] LABS: GLUCOSE,POINT OF CARE 207 MG/DL (70-110)
[2016-08-22 23:32] LABS: GLUCOSE,POINT OF CARE 172 MG/DL (70-110)
[2016-08-23] VITALS: BP 116/57
[2016-08-23] MEDS: INSULIN ASPART 100 UNITS/ML SQ PRN ×4 (00:47→17:55)
[2016-08-23 04:00] VITALS: BP 117/56
[2016-08-23 05:17] LABS: EOSINOPHILS # (AUTO) 2.14 K/uL (0.00-0.70); EOSINOPHILS % (AUTO) 10.15 % (1.0-6.0); HEMATOCRIT 25.2 % (36-46); HEMOGLOBIN 8.1 g/dL (12.0-16.0); LYMPHOCYTES # (AUTO) 1.2 K/uL (1.0-4.8); LYMPHOCYTES % (AUTO) 5.8 % (22.0-44.0); MEAN CORPUSCULAR HEMOGLOBIN 28.2 pg (26.0-34.0); MEAN CORPUSCULAR HGB CONC 31.9 G/dL (31.0-37.0); MEAN CORPUSCULAR VOLUME 88 fL (80-100); MONOCYTES # (AUTO) 0.9 K/uL (0.1-1.0); MONOCYTES % (AUTO) 4.1 % (2.0-9.0); NEUTROPHILS # (AUTO) 16.9 K/uL (1.8-7.7); PLATELET COUNT (AUTO) 230 K/uL (150-450); RED BLOOD CELL COUNT(AUTO) 2.86 MIL/uL (4.00-5.20); RED CELL DISTRIBUTION WIDTH 20.6 % (11.5-14.5)
[2016-08-23 05:31] LABS: CALCIUM, TOTAL 9.4 mg/dL (8.8-10.5); CREATININE 4.23 mg/dL (0.60-1.30); POTASSIUM 4.5 mmol/L (3.5-5.1)
[2016-08-23] MEDS: LEVOTHYROXINE SODIUM 25 MCG TABLET NG SCH (05:59)
[2016-08-23] MEDS: PIPERACILLIN SODIUM/TAZOBACTAM 2.25 GM in DEXTROSE 5%-WATER 50 ML IV SCH ×3 (05:59→20:49)
[2016-08-23 06:56] LABS: GLUCOSE COMMENT 1 Received Meds; GLUCOSE,POINT OF CARE 194 MG/DL (70-110)
[2016-08-23 07:15] LABS: WHITE BLOOD COUNT (AUTO) 24.6 K/uL (4.5-11.0)
[2016-08-23 07:47] LABS: GLUCOSE COMMENT 1 Received Meds; GLUCOSE,POINT OF CARE 178 MG/DL (70-110)
[2016-08-23 08:00] VITALS: BP 110/69
[2016-08-23] MEDS: BUDESONIDE 0.5 MG/2 ML NEB SOLUTION NEB SCH ×2 (09:18→19:13)
[2016-08-23] MEDS: CARVEDILOL 12.5 MG TABLET PO SCH ×2 (09:22→20:49)
[2016-08-23] MEDS: PANTOPRAZOLE SODIUM 40 MG/VIAL IVP SCH (09:22)
[2016-08-23] MEDS: SEVELAMER CARBONATE 800 MG POWDER PACKET NG SCH ×3 (09:22→17:52)
[2016-08-23] MEDS: HydrALAZINE HCL 25 MG TABLET PO SCH ×2 (09:23→20:49)
[2016-08-23] MEDS: HYPROMELLOSE 0.5% 15 ML OPHTHALMIC SOLUTION OU SCH ×2 (09:25→20:48)
[2016-08-23] MEDS: LevETIRAcetam 1,000 MG in DEXTROSE 5%-WATER 100 ML IV SCH ×2 (10:16→20:49)
[2016-08-23 12:00] VITALS: BP 120/60
[2016-08-23 16:00] VITALS: BP 111/64
[2016-08-23 16:52] LABS: GLUCOSE COMMENT 1 Received Meds; GLUCOSE,POINT OF CARE 170 MG/DL (70-110)
[2016-08-23 20:00] VITALS: BP 118/58
[2016-08-24] VITALS: BP 119/60
[2016-08-24] MEDS: INSULIN ASPART 100 UNITS/ML SQ PRN ×4 (00:16→18:10)
[2016-08-24] MEDS ORDERED: SODIUM CHLORIDE 0.9% 250 ML IV ONE (00:26)
[2016-08-24 04:00] VITALS: BP 121/61
[2016-08-24] MEDS: PIPERACILLIN SODIUM/TAZOBACTAM 2.25 GM in DEXTROSE 5%-WATER 50 ML IV SCH ×3 (05:30→20:45)
[2016-08-24 05:32] LABS: HEMATOCRIT 24.8 % (36-46); HEMOGLOBIN 8.5 g/dL (12.0-16.0); LYMPHOCYTES # (AUTO) 0.7 K/uL (1.0-4.8); LYMPHOCYTES % (AUTO) 4.1 % (22.0-44.0); MEAN CORPUSCULAR HEMOGLOBIN 29.5 pg (26.0-34.0); MEAN CORPUSCULAR HGB CONC 34.2 G/dL (31.0-37.0); MEAN CORPUSCULAR VOLUME 86 fL (80-100); MONOCYTES # (AUTO) 0.7 K/uL (0.1-1.0); NEUTROPHILS # (AUTO) 14.2 K/uL (1.8-7.7); NEUTROPHILS % (AUTO) 82.9 % (40.0-70.0); PLATELET COUNT (AUTO) 272 K/uL (150-450); RED BLOOD CELL COUNT(AUTO) 2.87 MIL/uL (4.00-5.20); RED CELL DISTRIBUTION WIDTH 20.3 % (11.5-14.5); WHITE BLOOD COUNT (AUTO) 17.2 K/uL (4.5-11.0)
[2016-08-24 05:51] LABS: ALBUMIN 2.1 g/dL (3.4-5.0); BILIRUBIN,TOTAL 0.5 mg/dL (0.1-1.0); CALCIUM, TOTAL 9.4 mg/dL (8.8-10.5); CREATININE 4.98 mg/dL (0.60-1.30); POTASSIUM 4.7 mmol/L (3.5-5.1); TOTAL PROTEIN, SERUM 6.9 g/dL (6.4-8.2)
[2016-08-24] MEDS: LEVOTHYROXINE SODIUM 25 MCG TABLET NG SCH (07:00)
[2016-08-24 08:00] VITALS: BP 117/67
[2016-08-24] MEDS: SEVELAMER CARBONATE 800 MG POWDER PACKET NG SCH ×3 (08:00→17:30)
[2016-08-24 08:34] LABS: RBC MORPHOLOGY COMMENT ABNORMAL RBC MORPH
[2016-08-24] MEDS: HydrALAZINE HCL 25 MG TABLET PO SCH ×2 (09:00→20:44)
[2016-08-24] MEDS: CARVEDILOL 12.5 MG TABLET PO SCH ×2 (09:00→20:44)
[2016-08-24] MEDS: HYPROMELLOSE 0.5% 15 ML OPHTHALMIC SOLUTION OU SCH ×2 (09:28→20:44)
[2016-08-24] MEDS: LevETIRAcetam 1,000 MG in DEXTROSE 5%-WATER 100 ML IV SCH ×2 (09:28→20:44)
[2016-08-24] MEDS: PANTOPRAZOLE SODIUM 40 MG/VIAL IVP SCH (09:28)
[2016-08-24 10:02] LABS: GLUCOSE,POINT OF CARE 190 MG/DL (70-110)
[2016-08-24 10:13] LABS: ABG A-A DIFF O2 29.1 mmHg (10-20.0); ABG BASE EXCESS 0.3 mmol/L (-2.0-3.0); ABG HCO3 25.2 mmol/L (22.0-26.0); ABG PCO2 29 mmHg (35-45); ABG PH 7.519 (7.35-7.450); TEMPERATURE, FAHRENHEIT, BG 98.6 FAHREN (96.0-98.6)
[2016-08-24 10:14] LABS: ALLEN TEST, BLOOD GAS Positive
[2016-08-24] MEDS: BUDESONIDE 0.5 MG/2 ML NEB SOLUTION NEB SCH ×2 (10:18→21:35)
[2016-08-24] MEDS ORDERED: SODIUM CHLORIDE 0.9% 100 ML ONE (10:28)
[2016-08-24] MEDS ORDERED: IOVERSOL 350 MG/ML 100 ML VIAL ONE (10:28)
[2016-08-24 11:08] LABS: GLUCOSE COMMENT 1 Received Meds; GLUCOSE,POINT OF CARE 216 MG/DL (70-110)
[2016-08-24 12:00] VITALS: BP 149/67
[2016-08-24 12:22] LABS: GLUCOSE COMMENT 1 Received Meds; GLUCOSE,POINT OF CARE 165 MG/DL (70-110)
[2016-08-24 16:00] VITALS: BP 131/61
[2016-08-24 20:00] VITALS: BP 119/63
[2016-08-25] VITALS: BP 94/58
[2016-08-25] MEDS: INSULIN ASPART 100 UNITS/ML SQ PRN ×3 (01:31→17:25)
[2016-08-25] MEDS ORDERED: SODIUM CHLORIDE 0.9% 250 ML IV ONE (03:23)
[2016-08-25 04:00] VITALS: BP 100/48
[2016-08-25 04:47] LABS: GLUCOSE COMMENT 1 Received Meds; GLUCOSE,POINT OF CARE 234 MG/DL (70-110)
[2016-08-25 06:05] LABS: EOSINOPHILS # (AUTO) 0.27 K/uL (0.00-0.70); EOSINOPHILS % (AUTO) 1.68 % (1.0-6.0); HEMOGLOBIN 8.4 g/dL (12.0-16.0); LYMPHOCYTES # (AUTO) 0.5 K/uL (1.0-4.8); LYMPHOCYTES % (AUTO) 2.8 % (22.0-44.0); MEAN CORPUSCULAR HEMOGLOBIN 28.4 pg (26.0-34.0); MEAN CORPUSCULAR HGB CONC 32.2 G/dL (31.0-37.0); MEAN CORPUSCULAR VOLUME 88 fL (80-100); MONOCYTES # (AUTO) 0.7 K/uL (0.1-1.0); MONOCYTES % (AUTO) 4.5 % (2.0-9.0); NEUTROPHILS # (AUTO) 14.9 K/uL (1.8-7.7); PLATELET COUNT (AUTO) 282 K/uL (150-450); RED BLOOD CELL COUNT(AUTO) 2.95 MIL/uL (4.00-5.20); RED CELL DISTRIBUTION WIDTH 20.9 % (11.5-14.5); WHITE BLOOD COUNT (AUTO) 16.3 K/uL (4.5-11.0)
[2016-08-25] MEDS: PIPERACILLIN SODIUM/TAZOBACTAM 2.25 GM in DEXTROSE 5%-WATER 50 ML IV SCH ×3 (06:28→20:22)
[2016-08-25] MEDS: LEVOTHYROXINE SODIUM 25 MCG TABLET NG SCH (06:48)
[2016-08-25 07:08] LABS: GLUCOSE,POINT OF CARE 132 MG/DL (70-110)
[2016-08-25 07:08] LABS: GLUCOSE,POINT OF CARE 120 MG/DL (70-110)
[2016-08-25 07:14] LABS: NEUTROPHILS % (AUTO) 91.1 % (40.0-70.0)
[2016-08-25 07:51] LABS: CALCIUM, TOTAL 9.5 mg/dL (8.8-10.5); CREATININE 2.59 mg/dL (0.60-1.30); POTASSIUM 3.8 mmol/L (3.5-5.1)
[2016-08-25 08:00] VITALS: BP 94/58
[2016-08-25 08:22] LABS: GLUCOSE COMMENT 1 Received Meds; GLUCOSE,POINT OF CARE 289 MG/DL (70-110)
[2016-08-25] MEDS: PANTOPRAZOLE SODIUM 40 MG/VIAL IVP SCH (08:29)
[2016-08-25] MEDS: LevETIRAcetam 1,000 MG in DEXTROSE 5%-WATER 100 ML IV SCH ×2 (08:29→20:22)
[2016-08-25] MEDS: HydrALAZINE HCL 25 MG TABLET PO SCH ×2 (08:29→20:22)
[2016-08-25] MEDS: CARVEDILOL 12.5 MG TABLET PO SCH ×2 (08:29→20:22)
[2016-08-25] MEDS: SEVELAMER CARBONATE 800 MG POWDER PACKET NG SCH ×2 (08:30→16:03)
[2016-08-25] MEDS: EPOETIN ALFA 10,000 UNITS/ML VIAL SQ SCH (08:30)
[2016-08-25] MEDS: HYPROMELLOSE 0.5% 15 ML OPHTHALMIC SOLUTION OU SCH ×2 (08:30→20:23)
[2016-08-25 08:39] LABS: RBC MORPHOLOGY COMMENT ABNORMAL RBC MORPH
[2016-08-25 10:17] LABS: ABG A-A DIFF O2 63.4 mmHg (10-20.0); ABG BASE EXCESS 11.5 mmol/L (-2.0-3.0); ABG HCO3 34.5 mmol/L (22.0-26.0); ABG OXYHEMOGLOBIN 98.1 % (94.0-100.0); ABG PCO2 34 mmHg (35-45); TEMPERATURE, FAHRENHEIT, BG 97.8 FAHREN (96.0-98.6)
[2016-08-25 10:18] LABS: ABG PH 7.603 (7.35-7.450); ALLEN TEST, BLOOD GAS Positive
[2016-08-25] MEDS: BUDESONIDE 0.5 MG/2 ML NEB SOLUTION NEB SCH ×2 (10:27→20:16)
[2016-08-25 12:00] VITALS: BP 108/62
[2016-08-25 12:42] LABS: GLUCOSE COMMENT 1 Received Meds; GLUCOSE,POINT OF CARE 140 MG/DL (70-110)
[2016-08-25 16:00] VITALS: BP 114/61
[2016-08-25 20:00] VITALS: BP 111/65
[2016-08-25] MEDS ORDERED: 0.9% SODIUM CHLORIDE 5 ML NEB SOLUTION NEB ONE (20:15)
[2016-08-26] VITALS: BP 111/63
[2016-08-26] MEDS: INSULIN ASPART 100 UNITS/ML SQ PRN ×4 (00:24→23:18)
[2016-08-26 04:00] VITALS: BP 133/63
[2016-08-26] MEDS: PIPERACILLIN SODIUM/TAZOBACTAM 2.25 GM in DEXTROSE 5%-WATER 50 ML IV SCH ×3 (04:32→20:06)
[2016-08-26 05:37] LABS: EOSINOPHILS % (AUTO) 4.4 % (1.0-6.0); HEMATOCRIT 24.5 % (36-46); HEMOGLOBIN 8.2 g/dL (12.0-16.0); LYMPHOCYTES # (AUTO) 0.9 K/uL (1.0-4.8); LYMPHOCYTES % (AUTO) 5.3 % (22.0-44.0); MEAN CORPUSCULAR HEMOGLOBIN 29.1 pg (26.0-34.0); MEAN CORPUSCULAR HGB CONC 33.5 G/dL (31.0-37.0); MEAN CORPUSCULAR VOLUME 87 fL (80-100); MONOCYTES # (AUTO) 0.7 K/uL (0.1-1.0); MONOCYTES % (AUTO) 4.6 % (2.0-9.0); NEUTROPHILS # (AUTO) 13.9 K/uL (1.8-7.7); PLATELET COUNT (AUTO) 322 K/uL (150-450); RED BLOOD CELL COUNT(AUTO) 2.82 MIL/uL (4.00-5.20); WHITE BLOOD COUNT (AUTO) 16.2 K/uL (4.5-11.0)
[2016-08-26 05:56] LABS: NEUTROPHILS % (AUTO) 85.7 % (40.0-70.0)
[2016-08-26] MEDS: LEVOTHYROXINE SODIUM 25 MCG TABLET NG SCH (05:59)
[2016-08-26 06:03] LABS: ALBUMIN 1.8 g/dL (3.4-5.0); BILIRUBIN,TOTAL 0.5 mg/dL (0.1-1.0); CALCIUM, TOTAL 9.9 mg/dL (8.8-10.5); CREATININE 3.42 mg/dL (0.60-1.30); MAGNESIUM 2.5 mg/dL (1.80-2.40); POTASSIUM 3.9 mmol/L (3.5-5.1); TOTAL PROTEIN, SERUM 6.7 g/dL (6.4-8.2)
[2016-08-26 07:16] LABS: RBC MORPHOLOGY COMMENT ABNORMAL RBC MORPH
[2016-08-26] MEDS: -HEMODIALYSIS NOTE- MISC SCH (07:53)
[2016-08-26 08:00] VITALS: BP 144/73
[2016-08-26] MEDS: SEVELAMER CARBONATE 800 MG POWDER PACKET NG SCH ×3 (08:37→17:30)
[2016-08-26] MEDS: CARVEDILOL 12.5 MG TABLET PO SCH ×2 (08:38→20:06)
[2016-08-26] MEDS: HydrALAZINE HCL 25 MG TABLET PO SCH ×2 (08:38→20:06)
[2016-08-26] MEDS: PANTOPRAZOLE SODIUM 40 MG/VIAL IVP SCH (08:38)
[2016-08-26] MEDS: HYPROMELLOSE 0.5% 15 ML OPHTHALMIC SOLUTION OU SCH ×2 (08:38→20:07)
[2016-08-26] MEDS: EPOETIN ALFA 10,000 UNITS/ML VIAL SQ SCH (08:38)
[2016-08-26] MEDS: LevETIRAcetam 1,000 MG in DEXTROSE 5%-WATER 100 ML IV SCH ×2 (09:25→20:06)
[2016-08-26 09:49] LABS: ABG A-A DIFF O2 49.1 mmHg (10-20.0); ABG HCO3 32.4 mmol/L (22.0-26.0); ABG OXYHEMOGLOBIN 98.3 % (94.0-100.0); ABG PCO2 30 mmHg (35-45); TEMPERATURE, FAHRENHEIT, BG 97.6 FAHREN (96.0-98.6)
[2016-08-26 09:50] LABS: ABG PH 7.622 (7.35-7.450); ALLEN TEST, BLOOD GAS Positive
[2016-08-26] MEDS: BUDESONIDE 0.5 MG/2 ML NEB SOLUTION NEB SCH ×2 (10:49→21:18)
[2016-08-26] MEDS ORDERED: MANNITOL 25%-12.5 GM/50 ML VIAL IVP PRN (11:30)
[2016-08-26 12:00] VITALS: BP 105/61
[2016-08-26 12:08] LABS: ABG A-A DIFF O2 53.7 mmHg (10-20.0); ABG BASE EXCESS 7.2 mmol/L (-2.0-3.0); ABG HCO3 30.6 mmol/L (22.0-26.0); ABG OXYHEMOGLOBIN 97.7 % (94.0-100.0); ABG PCO2 37 mmHg (35-45); ABG PH 7.531 (7.35-7.450); TEMPERATURE, FAHRENHEIT, BG 97.3 FAHREN (96.0-98.6)
[2016-08-26 12:09] LABS: ALLEN TEST, BLOOD GAS Positive
[2016-08-26 16:00] VITALS: BP 122/67
[2016-08-26 20:00] VITALS: BP 123/69
[2016-08-27] VITALS: BP 130/73
[2016-08-27 04:00] VITALS: BP 151/76
[2016-08-27 05:43] LABS: BASOPHILS # (AUTO) 0.02 K/uL (0.00-0.20); BASOPHILS % (AUTO) 0.2 % (0.0-2.0); EOSINOPHILS # (AUTO) 0.84 K/uL (0.00-0.70); EOSINOPHILS % (AUTO) 6.34 % (1.0-6.0); HEMATOCRIT 25.5 % (36-46); HEMOGLOBIN 8.2 g/dL (12.0-16.0); LYMPHOCYTES # (AUTO) 0.7 K/uL (1.0-4.8); LYMPHOCYTES % (AUTO) 5.2 % (22.0-44.0); MEAN CORPUSCULAR HEMOGLOBIN 28.3 pg (26.0-34.0); MEAN CORPUSCULAR HGB CONC 32.1 G/dL (31.0-37.0); MEAN CORPUSCULAR VOLUME 88 fL (80-100); MONOCYTES # (AUTO) 0.5 K/uL (0.1-1.0); MONOCYTES % (AUTO) 3.9 % (2.0-9.0); NEUTROPHILS # (AUTO) 11.2 K/uL (1.8-7.7); NEUTROPHILS % (AUTO) 84.5 % (40.0-70.0); PLATELET COUNT (AUTO) 319 K/uL (150-450); RED BLOOD CELL COUNT(AUTO) 2.89 MIL/uL (4.00-5.20); RED CELL DISTRIBUTION WIDTH 21.3 % (11.5-14.5); WHITE BLOOD COUNT (AUTO) 13.2 K/uL (4.5-11.0)
[2016-08-27] MEDS: PIPERACILLIN SODIUM/TAZOBACTAM 2.25 GM in DEXTROSE 5%-WATER 50 ML IV SCH ×3 (05:48→20:13)
[2016-08-27] MEDS: LEVOTHYROXINE SODIUM 25 MCG TABLET NG SCH (05:49)
[2016-08-27 05:53] LABS: ALBUMIN 1.9 g/dL (3.4-5.0); BILIRUBIN,TOTAL 0.5 mg/dL (0.1-1.0); CALCIUM, TOTAL 9.6 mg/dL (8.8-10.5); CREATININE 1.98 mg/dL (0.60-1.30); POTASSIUM 3.9 mmol/L (3.5-5.1); TOTAL PROTEIN, SERUM 6.7 g/dL (6.4-8.2)
[2016-08-27] MEDS: BUDESONIDE 0.5 MG/2 ML NEB SOLUTION NEB SCH ×2 (07:23→19:05)
[2016-08-27 08:00] VITALS: BP 122/67
[2016-08-27] MEDS ORDERED: VANCOMYCIN HCL 750 MG in DEXTROSE 5%-WATER 150 ML IV ONE (08:00)
[2016-08-27] MEDS: LevETIRAcetam 1,000 MG in DEXTROSE 5%-WATER 100 ML IV SCH ×2 (08:32→21:22)
[2016-08-27] MEDS: SEVELAMER CARBONATE 800 MG POWDER PACKET NG SCH ×3 (08:33→17:08)
[2016-08-27] MEDS: PANTOPRAZOLE SODIUM 40 MG/VIAL IVP SCH (08:33)
[2016-08-27] MEDS: CARVEDILOL 12.5 MG TABLET PO SCH ×2 (08:33→20:13)
[2016-08-27] MEDS: HydrALAZINE HCL 25 MG TABLET PO SCH ×2 (08:33→20:13)
[2016-08-27] MEDS: -HEMODIALYSIS NOTE- MISC SCH (08:34)
[2016-08-27] MEDS: HYPROMELLOSE 0.5% 15 ML OPHTHALMIC SOLUTION OU SCH ×2 (08:35→20:34)
[2016-08-27] MEDS ORDERED: SODIUM CHLORIDE 0.9% 250 ML IV ONE (08:57)
[2016-08-27 10:51] LABS: GLUCOSE COMMENT 1 Received Meds; GLUCOSE,POINT OF CARE 172 MG/DL (70-110)
[2016-08-27 10:51] LABS: GLUCOSE,POINT OF CARE 131 MG/DL (70-110)
[2016-08-27 10:55] LABS: GLUCOSE,POINT OF CARE 152 MG/DL (70-110)
[2016-08-27 11:01] LABS: GLUCOSE,POINT OF CARE 120 MG/DL (70-110)
[2016-08-27] MEDS: INSULIN ASPART 100 UNITS/ML SQ PRN (11:18)
[2016-08-27 11:41] LABS: RBC MORPHOLOGY COMMENT ABNORMAL RBC MORPH
[2016-08-27 12:00] VITALS: BP 89/53
[2016-08-27 13:51] LABS: ABG A-A DIFF O2 39.2 mmHg (10-20.0); ABG BASE EXCESS 7.9 mmol/L (-2.0-3.0); ABG HCO3 31.2 mmol/L (22.0-26.0); ABG OXYHEMOGLOBIN 98.2 % (94.0-100.0); ABG PCO2 38 mmHg (35-45); ABG PH 7.527 (7.35-7.450); TEMPERATURE, FAHRENHEIT, BG 97.5 FAHREN (96.0-98.6)
[2016-08-27 13:52] LABS: ALLEN TEST, BLOOD GAS Positive
[2016-08-27 16:00] VITALS: BP 111/55
[2016-08-27 17:08] LABS: GLUCOSE COMMENT 1 Received Meds; GLUCOSE,POINT OF CARE 162 MG/DL (70-110)
[2016-08-27 17:08] LABS: GLUCOSE COMMENT 1 Received Meds; GLUCOSE,POINT OF CARE 164 MG/DL (70-110)
[2016-08-27 17:08] LABS: GLUCOSE COMMENT 1 Received Meds; GLUCOSE,POINT OF CARE 152 MG/DL (70-110)
[2016-08-27 17:08] LABS: GLUCOSE COMMENT 1 Received Meds; GLUCOSE,POINT OF CARE 143 MG/DL (70-110)
[2016-08-27 20:00] VITALS: BP 106/66
[2016-08-27 21:12] LABS: GLUCOSE COMMENT 1 Received Meds; GLUCOSE,POINT OF CARE 117 MG/DL (70-110)
[2016-08-28] VITALS: BP 104/74
[2016-08-28 04:00] VITALS: BP 100/57
[2016-08-28] MEDS: LEVOTHYROXINE SODIUM 25 MCG TABLET NG SCH (05:34)
[2016-08-28] MEDS: PIPERACILLIN SODIUM/TAZOBACTAM 2.25 GM in DEXTROSE 5%-WATER 50 ML IV SCH ×3 (05:35→20:12)
[2016-08-28 05:40] LABS: EOSINOPHILS % (AUTO) 6.9 % (1.0-6.0); HEMATOCRIT 24.8 % (36-46); HEMOGLOBIN 8.2 g/dL (12.0-16.0); LYMPHOCYTES # (AUTO) 0.8 K/uL (1.0-4.8); LYMPHOCYTES % (AUTO) 7.9 % (22.0-44.0); MEAN CORPUSCULAR HEMOGLOBIN 29.1 pg (26.0-34.0); MEAN CORPUSCULAR HGB CONC 33.2 G/dL (31.0-37.0); MEAN CORPUSCULAR VOLUME 88 fL (80-100); MONOCYTES # (AUTO) 0.5 K/uL (0.1-1.0); MONOCYTES % (AUTO) 5.4 % (2.0-9.0); NEUTROPHILS # (AUTO) 7.9 K/uL (1.8-7.7); NEUTROPHILS % (AUTO) 79.8 % (40.0-70.0); PLATELET COUNT (AUTO) 315 K/uL (150-450); RED BLOOD CELL COUNT(AUTO) 2.83 MIL/uL (4.00-5.20); RED CELL DISTRIBUTION WIDTH 20.9 % (11.5-14.5); WHITE BLOOD COUNT (AUTO) 9.9 K/uL (4.5-11.0)
[2016-08-28 05:56] LABS: ALBUMIN 1.8 g/dL (3.4-5.0); BILIRUBIN,TOTAL 0.5 mg/dL (0.1-1.0); CALCIUM, TOTAL 9.7 mg/dL (8.8-10.5); CREATININE 2.91 mg/dL (0.60-1.30); MAGNESIUM 2.2 mg/dL (1.80-2.40); POTASSIUM 3.7 mmol/L (3.5-5.1); TOTAL PROTEIN, SERUM 6.4 g/dL (6.4-8.2)
[2016-08-28 07:13] LABS: RBC MORPHOLOGY COMMENT ABNORMAL RBC MORPH
[2016-08-28] MEDS: BUDESONIDE 0.5 MG/2 ML NEB SOLUTION NEB SCH ×2 (07:43→21:06)
[2016-08-28 08:00] VITALS: BP 145/70
[2016-08-28] MEDS: SEVELAMER CARBONATE 800 MG POWDER PACKET NG SCH ×3 (08:00→17:30)
[2016-08-28] MEDS: PANTOPRAZOLE SODIUM 40 MG/VIAL IVP SCH (08:42)
[2016-08-28] MEDS: LevETIRAcetam 1,000 MG in DEXTROSE 5%-WATER 100 ML IV SCH ×2 (08:43→20:11)
[2016-08-28] MEDS: EPOETIN ALFA 10,000 UNITS/ML VIAL SQ SCH (08:43)
[2016-08-28] MEDS: HydrALAZINE HCL 25 MG TABLET PO SCH ×3 (08:44→20:12)
[2016-08-28] MEDS: CARVEDILOL 12.5 MG TABLET PO SCH ×3 (08:45→20:12)
[2016-08-28] MEDS: HYPROMELLOSE 0.5% 15 ML OPHTHALMIC SOLUTION OU SCH ×2 (08:48→20:12)
[2016-08-28 12:00] VITALS: BP 107/62
[2016-08-28] MEDS ORDERED: ROCURONIUM BROMIDE 10 MG/ML 5 ML VIAL IVP ONE (12:00)
[2016-08-28] MEDS ORDERED: PROPOFOL 1% 20 ML VIAL IVP ONE (12:00)
[2016-08-28 12:22] LABS: GLUCOSE,POINT OF CARE 108 MG/DL (70-110)
[2016-08-28 12:22] LABS: GLUCOSE,POINT OF CARE 117 MG/DL (70-110)
[2016-08-28 12:23] LABS: GLUCOSE,POINT OF CARE 136 MG/DL (70-110)
[2016-08-28 16:00] VITALS: BP 89/54
[2016-08-28 17:12] LABS: GLUCOSE,POINT OF CARE 121 MG/DL (70-110)
[2016-08-28] MEDS: PIPERACILLIN SODIUM/TAZOBACTAM 0.75 GM in DEXTROSE 5%-WATER 50 ML IV PRN (17:12)
[2016-08-28 20:00] VITALS: BP 134/62
[2016-08-28] MEDS ORDERED: SODIUM CHLORIDE 0.9% 250 ML IV ONE (20:02)
[2016-08-29] VITALS: BP 132/67
[2016-08-29] MEDS: INSULIN ASPART 100 UNITS/ML SQ PRN (00:48)
[2016-08-29 04:00] VITALS: BP 149/70
[2016-08-29] MEDS: PIPERACILLIN SODIUM/TAZOBACTAM 2.25 GM in DEXTROSE 5%-WATER 50 ML IV SCH ×3 (05:11→20:54)
[2016-08-29] MEDS: LEVOTHYROXINE SODIUM 25 MCG TABLET NG SCH (06:07)
[2016-08-29] MEDS: BUDESONIDE 0.5 MG/2 ML NEB SOLUTION NEB SCH ×2 (07:28→21:39)
[2016-08-29 08:00] VITALS: BP 119/61
[2016-08-29] MEDS: SEVELAMER CARBONATE 800 MG POWDER PACKET NG SCH ×3 (08:38→18:05)
[2016-08-29] MEDS: HYPROMELLOSE 0.5% 15 ML OPHTHALMIC SOLUTION OU SCH ×2 (08:39→23:35)
[2016-08-29] MEDS: LevETIRAcetam 1,000 MG in DEXTROSE 5%-WATER 100 ML IV SCH ×2 (08:39→20:54)
[2016-08-29] MEDS: PANTOPRAZOLE SODIUM 40 MG/VIAL IVP SCH (08:39)
[2016-08-29] MEDS: CARVEDILOL 12.5 MG TABLET PO SCH ×2 (08:42→20:53)
[2016-08-29] MEDS: HydrALAZINE HCL 25 MG TABLET PO SCH ×2 (08:44→20:54)
[2016-08-29 12:00] VITALS: BP 124/64
[2016-08-29 12:00] LABS: ABG A-A DIFF O2 41.1 mmHg (10-20.0); ABG BASE EXCESS 1.5 mmol/L (-2.0-3.0); ABG OXYHEMOGLOBIN 98.1 % (94.0-100.0); ABG PCO2 28 mmHg (35-45); ABG PH 7.548 (7.35-7.450); ALLEN TEST, BLOOD GAS Positive; TEMPERATURE, FAHRENHEIT, BG 97.8 FAHREN (96.0-98.6)
[2016-08-29 12:07] LABS: GLUCOSE COMMENT 1 Received Meds; GLUCOSE,POINT OF CARE 160 MG/DL (70-110)
[2016-08-29 12:07] LABS: GLUCOSE,POINT OF CARE 118 MG/DL (70-110)
[2016-08-29 16:00] VITALS: BP 123/63
[2016-08-29 20:00] VITALS: BP 125/62
[2016-08-30] VITALS (7 sets, daily range): BP systolic 140–161; BP diastolic 65–79
[2016-08-30] MEDS ORDERED: SODIUM CHLORIDE 0.9% 250 ML IV ONE (02:40)
[2016-08-30] MEDS: PIPERACILLIN SODIUM/TAZOBACTAM 2.25 GM in DEXTROSE 5%-WATER 50 ML IV SCH ×3 (05:32→21:53)
[2016-08-30] MEDS: LEVOTHYROXINE SODIUM 25 MCG TABLET NG SCH (05:33)
[2016-08-30] MEDS: BUDESONIDE 0.5 MG/2 ML NEB SOLUTION NEB SCH ×2 (07:59→20:54)
[2016-08-30 08:12] LABS: GLUCOSE,POINT OF CARE 120 MG/DL (70-110)
[2016-08-30 08:12] LABS: GLUCOSE,POINT OF CARE 129 MG/DL (70-110)
[2016-08-30 08:12] LABS: GLUCOSE,POINT OF CARE 135 MG/DL (70-110)
[2016-08-30] MEDS ORDERED: ALBUMIN HUMAN 25%-25GM/100ML 100 ML IV PRN (09:15)
[2016-08-30] MEDS ORDERED: VANCOMYCIN HCL 750 MG in DEXTROSE 5%-WATER 150 ML IV ONE (10:00)
[2016-08-30] MEDS: SEVELAMER CARBONATE 800 MG POWDER PACKET NG SCH ×3 (10:23→18:06)
[2016-08-30] MEDS: LevETIRAcetam 1,000 MG in DEXTROSE 5%-WATER 100 ML IV SCH (10:24)
[2016-08-30] MEDS: HydrALAZINE HCL 25 MG TABLET PO SCH (10:25)
[2016-08-30] MEDS: HYPROMELLOSE 0.5% 15 ML OPHTHALMIC SOLUTION OU SCH ×2 (10:25→21:36)
[2016-08-30] MEDS: PANTOPRAZOLE SODIUM 40 MG/VIAL IVP SCH (10:25)
[2016-08-30] MEDS: CARVEDILOL 12.5 MG TABLET PO SCH (10:26)
[2016-08-30 10:42] LABS: CALCIUM, TOTAL 9.5 mg/dL (8.8-10.5)
[2016-08-30] MEDS: INSULIN ASPART 100 UNITS/ML SQ PRN ×2 (12:32→17:53)
[2016-08-30 17:12] LABS: GLUCOSE COMMENT 1 Received Meds; GLUCOSE,POINT OF CARE 190 MG/DL (70-110)
[2016-08-30] MEDS ORDERED: SODIUM CHLORIDE 0.9% 50 ML ONE (21:33)
[2016-08-30] MEDS: LevETIRAcetam 500 MG in DEXTROSE 5%-WATER 100 ML IV SCH (21:35)
[2016-08-30] MEDS: CARVEDILOL 12.5 MG TABLET NG SCH (21:35)
[2016-08-30] MEDS: HydrALAZINE HCL 25 MG TABLET NG SCH (21:36)
[2016-08-30] MEDS: -HEMODIALYSIS NOTE- MISC SCH ×3 (22:03→22:06)
[2016-08-31] VITALS (8 sets, daily range): BP systolic 91–152; BP diastolic 52–74
[2016-08-31] MEDS: INSULIN ASPART 100 UNITS/ML SQ PRN ×2 (00:23→13:21)
[2016-08-31] MEDS: LEVOTHYROXINE SODIUM 25 MCG TABLET NG SCH (06:01)
[2016-08-31] MEDS: PIPERACILLIN SODIUM/TAZOBACTAM 2.25 GM in DEXTROSE 5%-WATER 50 ML IV SCH ×3 (06:05→22:09)
[2016-08-31 07:18] LABS: GLUCOSE COMMENT 1 Received Meds; GLUCOSE,POINT OF CARE 167 MG/DL (70-110)
[2016-08-31 07:18] LABS: GLUCOSE,POINT OF CARE 136 MG/DL (70-110)
[2016-08-31 07:55] LABS: CALCIUM, TOTAL 9.5 mg/dL (8.8-10.5); CREATININE 3.82 mg/dL (0.60-1.30); PHOSPHORUS 4.1 mg/dL (2.5-4.9); POTASSIUM 4.1 mmol/L (3.5-5.1)
[2016-08-31] MEDS: BUDESONIDE 0.5 MG/2 ML NEB SOLUTION NEB SCH ×2 (09:26→19:41)
[2016-08-31] MEDS: SEVELAMER CARBONATE 800 MG POWDER PACKET NG SCH ×3 (10:37→18:55)
[2016-08-31] MEDS: LevETIRAcetam 500 MG in DEXTROSE 5%-WATER 100 ML IV SCH ×2 (10:38→21:36)
[2016-08-31] MEDS: HydrALAZINE HCL 25 MG TABLET NG SCH ×2 (10:38→22:41)
[2016-08-31] MEDS: PANTOPRAZOLE SODIUM 40 MG/VIAL IVP SCH (10:38)
[2016-08-31] MEDS: CARVEDILOL 12.5 MG TABLET NG SCH ×2 (10:39→21:36)
[2016-08-31] MEDS: HYPROMELLOSE 0.5% 15 ML OPHTHALMIC SOLUTION OU SCH ×2 (10:40→21:36)
[2016-08-31] MEDS: EPOETIN ALFA 10,000 UNITS/ML VIAL SQ SCH (10:40)
[2016-08-31] MEDS ORDERED: MANNITOL 25%-12.5 GM/50 ML VIAL IVP ONE (12:00)
[2016-08-31] MEDS ORDERED: LORATADINE 10 MG TABLET PO PRN (15:30)
[2016-08-31 19:27] LABS: GLUCOSE,POINT OF CARE 153 MG/DL (70-110)
[2016-08-31 19:27] LABS: GLUCOSE,POINT OF CARE 134 MG/DL (70-110)
[2016-08-31] MEDS: -HEMODIALYSIS NOTE- MISC SCH (20:30)
[2016-08-31] MEDS: PIPERACILLIN SODIUM/TAZOBACTAM 0.75 GM in DEXTROSE 5%-WATER 50 ML IV PRN (20:43)
[2016-08-31] MEDS ORDERED: SODIUM CHLORIDE 0.9% 50 ML ONE (21:24)
[2016-09-01] VITALS (15 sets, daily range): BP systolic 114–167; BP diastolic 57–83
[2016-09-01 00:47] LABS: GLUCOSE COMMENT 1 Received Meds; GLUCOSE,POINT OF CARE 164 MG/DL (70-110)
[2016-09-01] MEDS: PIPERACILLIN SODIUM/TAZOBACTAM 2.25 GM in DEXTROSE 5%-WATER 50 ML IV SCH ×3 (05:43→21:33)
[2016-09-01 06:25] LABS: ALBUMIN 1.9 g/dL (3.4-5.0); BILIRUBIN,TOTAL 0.5 mg/dL (0.1-1.0); CALCIUM, TOTAL 9.4 mg/dL (8.8-10.5); CREATININE 2.26 mg/dL (0.60-1.30); POTASSIUM 3.7 mmol/L (3.5-5.1); TOTAL PROTEIN, SERUM 6.4 g/dL (6.4-8.2)
[2016-09-01] MEDS: LEVOTHYROXINE SODIUM 25 MCG TABLET NG SCH (06:30)
[2016-09-01 07:22] LABS: BASOPHILS % (AUTO) 0.1 % (0.0-2.0); EOSINOPHILS % (AUTO) 3.6 % (1.0-6.0); LYMPHOCYTES # (AUTO) 0.8 K/uL (1.0-4.8); LYMPHOCYTES % (AUTO) 6.2 % (22.0-44.0); MEAN CORPUSCULAR HEMOGLOBIN 29.3 pg (26.0-34.0); MEAN CORPUSCULAR HGB CONC 33.2 G/dL (31.0-37.0); MEAN CORPUSCULAR VOLUME 88 fL (80-100); MONOCYTES # (AUTO) 0.5 K/uL (0.1-1.0); MONOCYTES % (AUTO) 4.4 % (2.0-9.0); NEUTROPHILS # (AUTO) 10.5 K/uL (1.8-7.7); PLATELET COUNT (AUTO) 311 K/uL (150-450); RED BLOOD CELL COUNT(AUTO) 2.36 MIL/uL (4.00-5.20); RED CELL DISTRIBUTION WIDTH 21.4 % (11.5-14.5); WHITE BLOOD COUNT (AUTO) 12.3 K/uL (4.5-11.0)
[2016-09-01 07:26] LABS: HEMOGLOBIN 6.9 g/dL (12.0-16.0)
[2016-09-01 07:27] LABS: HEMATOCRIT 20.8 % (36-46); NEUTROPHILS % (AUTO) 85.7 % (40.0-70.0)
[2016-09-01] MEDS: SEVELAMER CARBONATE 800 MG POWDER PACKET NG SCH ×3 (08:00→18:54)
[2016-09-01 08:27] LABS: GLUCOSE,POINT OF CARE 102 MG/DL (70-110)
[2016-09-01] MEDS ORDERED: SODIUM CHLORIDE 0.9% 1,000 ML IV ONE (08:30)
[2016-09-01] MEDS ORDERED: SODIUM CHLORIDE 0.9% 0 ML IV ONE (08:59)
[2016-09-01] MEDS: -HEMODIALYSIS NOTE- MISC SCH (09:00)
[2016-09-01] MEDS ORDERED: CARVEDILOL 6.25 MG TABLET NG SCH (09:00)
[2016-09-01 09:04] LABS: RBC MORPHOLOGY COMMENT ABNORMAL RBC MORPH
[2016-09-01 09:35] LABS: PROTHROMBIN TIME 10.8 SEC (9.4-11.6)
[2016-09-01] MEDS: BUDESONIDE 0.5 MG/2 ML NEB SOLUTION NEB SCH ×2 (10:23→20:17)
[2016-09-01] MEDS: PANTOPRAZOLE SODIUM 40 MG/VIAL IVP SCH (10:33)
[2016-09-01] MEDS: LevETIRAcetam 500 MG in DEXTROSE 5%-WATER 100 ML IV SCH ×2 (10:34→21:13)
[2016-09-01] MEDS: HYPROMELLOSE 0.5% 15 ML OPHTHALMIC SOLUTION OU SCH ×2 (10:35→21:17)
[2016-09-01] MEDS ORDERED: SODIUM CHLORIDE 0.9% 250 ML IV ONE ×2 (12:10→16:52)
[2016-09-01 13:25] LABS: ABG PH 7.518 (7.35-7.450); TEMPERATURE, FAHRENHEIT, BG 97.5 FAHREN (96.0-98.6)
[2016-09-01 13:28] LABS: ABG BASE EXCESS -1.1 mmol/L (-2.0-3.0); ABG HCO3 23.8 mmol/L (22.0-26.0); ABG OXYHEMOGLOBIN 96.7 % (94.0-100.0); ABG PCO2 28 mmHg (35-45)
[2016-09-01 13:29] LABS: ALLEN TEST, BLOOD GAS Positive
[2016-09-01] MEDS ORDERED: BUDE0.5A3 NEB (18:38)
[2016-09-01] MEDS ORDERED: EPOE10003 SQ (18:59)
[2016-09-01] MEDS ORDERED: D50SYG IV (18:59)
[2016-09-01] MEDS ORDERED: [UNRECOGNIZED DRUG - CODE] IV (18:59)
[2016-09-01] MEDS ORDERED: [UNRECOGNIZED DRUG - CODE] IV (18:59)
[2016-09-01] MEDS ORDERED: LEVO25TA9 PEG (18:59)
[2016-09-01] MEDS ORDERED: PANT40I IV (18:59)
[2016-09-01] MEDS ORDERED: ZOSY225FZ IV ×2 (18:59)
[2016-09-01] MEDS ORDERED: ACET650S27 PR (18:59)
[2016-09-01] MEDS ORDERED: HYPR15DR23 OU (18:59)
[2016-09-01 19:23] LABS: HEMATOCRIT 24.3 % (36-46); HEMOGLOBIN 8.2 g/dL (12.0-16.0)
[2016-09-01] MEDS ORDERED: CARVEDILOL 6.25 MG TABLET PEG SCH (21:07)
[2016-09-02 03:47] LABS: GLUCOSE,POINT OF CARE 142 MG/DL (70-110)
[2016-09-02 03:47] LABS: GLUCOSE,POINT OF CARE 114 MG/DL (70-110)
[2016-09-06 06:23] LABS: GLUCOSE,POINT OF CARE 118 MG/DL (70-110)
== END 2016-09-01 22:15 | DRG 4 ==
LOC: EMS 10:23 → ICU 19:45 → 5N 08-30 07:35
PROVIDERS: ADMIT Internal Medicine; ATTEND Internal Medicine
PROC: 5A1955Z Respiratory Ventilation, Greater than 96 Consecutive Hours (ICD-10-PCS; principal; 2016-08-14)
PROC: 0BH17EZ Insertion of Endotracheal Airway into Trachea, Via Natural or Artificial Opening (ICD-10-PCS; 2016-08-14)
PROC: 30233N1 Transfusion of Nonautologous Red Blood Cells into Peripheral Vein, Percutaneous Approach (ICD-10-PCS; 2016-08-15)
PROC: 5A1D60Z (ICD-10-PCS; 2016-08-15)
PROC: 0B113F4 Bypass Trachea to Cutaneous with Tracheostomy Device, Percutaneous Approach (ICD-10-PCS; 2016-08-28)
DX: J96.00 Acute respiratory failure, unspecified whether with hypoxia or hypercapnia (principal); K72.00 Acute and subacute hepatic failure without coma; I46.9 Cardiac arrest, cause unspecified; N18.6 End stage renal disease; R40.20 Unspecified coma; G93.1 Anoxic brain damage, not elsewhere classified; I12.0 Hypertensive chronic kidney disease with stage 5 chronic kidney disease or end stage renal disease; E87.1 Hypo-osmolality and hyponatremia; J93.9 Pneumothorax, unspecified; N03.9 Chronic nephritic syndrome with unspecified morphologic changes; D72.829 Elevated white blood cell count, unspecified; E88.09 Other disorders of plasma-protein metabolism, not elsewhere classified; D63.1 Anemia in chronic kidney disease; E83.39 Other disorders of phosphorus metabolism; E03.9 Hypothyroidism, unspecified; E78.5 Hyperlipidemia, unspecified; E83.42 Hypomagnesemia; E87.6 Hypokalemia; G40.909 Epilepsy, unspecified, not intractable, without status epilepticus; I25.10 Atherosclerotic heart disease of native coronary artery without angina pectoris; E11.22 Type 2 diabetes mellitus with diabetic chronic kidney disease; J44.9 Chronic obstructive pulmonary disease, unspecified; Z99.2 Dependence on renal dialysis; Z79.899 Other long term (current) drug therapy; J45.909 Unspecified asthma, uncomplicated; Z90.49 Acquired absence of other specified parts of digestive tract; Z90.710 Acquired absence of both cervix and uterus
CPT/HCPCS: 31500; 32551; 51702; 70450; 71260; 71275; 72193; 74160; 82270; 82271; 82728; 82805; 82962; 83540; 83550; 83615; 83735; 84100; 84443; 85014; 85018; 86850; 86900; 86901; 86920; 87040; 87070; 87081; 87205; 87324; 87340; 87449; 90935; 93005; 93306; 94002; 94003; 94640; 95816; 96365; 96375; 99291; C9113; J0171; J0461; J0712; J0885; J2060; J2150; J2370; J2543; J2704; J3370; J3475; J3490; J7030; J7040; J7050; J7060; P9016